=== PATIENT | female | born 1945 | race Caucasian/White ===

== ENCOUNTER → 2018-10-19 | Outpatient (CLI) | payer OTHER ==
[~2018-10-19] VITALS: Ht 157.5 cm; Wt 89.8 kg
[~2018-10-19] MED LIST: ALIGN4 MG PO; ASPIR 8181 MG PO; ATENOLOL 100MG100 MG PO; CALCITRATE200 MG PO; CLONIDINE HCL0.1 MG PO; FIBERCON625 M1 PO; GLUCOSAMINE CH1 EAC2 PO; PROTONIX40 M1 PO; VITAMIN D-32000 UNIT PO; XANAX 0.25 MG0.25 MG PO
--- NOTE | ~2018-10-19 | P ---
[facility] [place] [address] PROCEDURE REPORT Name: THEE BRISENO Room #: REG [facility]#: [id number] Admission: 10/19/18 ������������������ Attend Phys: Maroi Alfred MD Discharge: ������������������ Date of : 41 Report #: [id number] THIS REPORT FOR: //name// CC: Mario Talamantes DATE OF SERVICE: 10/19/2018 BRIEF HISTORY: The patient is a 73-year-old woman with history of a persistent duodenal adenoma with previous removal. She presents today for followup to ensure complete removal. PREOPERATIVE DIAGNOSIS: Duodenal adenoma. POSTOPERATIVE DIAGNOSES: 1. Persistent duodenal adenoma, second portion of duodenum. 2. Moderately severe diffuse gastritis. MEDICATIONS: Deep sedation with propofol per anesthesia. SPECIMEN: Polyp from second portion of duodenum. ESTIMATED BLOOD LOSS: 3 mL. PROCEDURE: Esophagogastroduodenoscopy with snare polypectomy and argon plasma coagulation of polypectomy site. FINDINGS: Prior to propofol sedation, procedure of upper endoscopy and polyp removal was discussed with the patient as well as potential risks and its complications. She indicates she understands and desires to proceed. DESCRIPTION OF PROCEDURE: With the patient in left lateral decubitus position, the Olympus video endoscope was inserted in the cervical esophagus under direct vision without difficulty. Examination of this organ through its entire length revealed normal esophageal mucosa down the squamocolumnar junction. Squamocolumnar junction was inspected and noted to be unremarkable. Scope was advanced in the stomach, was examined on end view as well as retroflexed views. There was noted to be moderate severe diffuse gastritis, this has been noted in the past. Biopsies in the past were negative for Helicobacter pylori and they were not repeated today. Pylorus was unremarkable. Duodenal bulb was unremarkable. The scope was then passed through the duodenal sweep down to the fourth portion. Upon slow withdrawal of the scope through the duodenum, the mucosa was normal all the way back to the level of the papilla. The papilla was seen and was noted to be within normal limits. The previously noted polyp was at the angle of the bulb and second portion, which was a very difficult area to [facility] [address] [place] [address] PROCEDURE REPORT Name: THEE BRISENO Greta Room #: REG [facility]..#: [id number] Admission: 10/19/18 ������������������ Attend Phys: Mario Alfred MD Discharge: ������������������ Date of : 41 Report #: [id number] visualize. We had withdrawal of the scope multiple times in this area and finally did see there was still polypoid tissue remaining. There appeared to be 2 polyps side by side, one was relatively flat and about 5 mm in greatest dimension, the other was smaller, possibly 3 mm or so. It was extremely difficult to maintain position the scope in this area due to its position. We tried multiple times with the upper endoscope to engage it in the snare. However, every time we attempt to do so, the scope fell back into the stomach. After multiple attempts, we then switched for a pediatric colonoscope, which actually gave us a different view. It was still extremely difficult, then after many attempts, we finally engaged the larger polyp in a polypectomy and snare and removed by hot snare polypectomy. We then used biopsy forceps to grasp the smaller polyp and removed most of it. We then treated the area with argon plasma coagulation with good success. The scope was withdrawn. The patient tolerated the procedure well. CONDITION OF THE PATIENT UPON DISCHARGE: Following procedure, the patient was drowsy. She will be discharged home when fully ambulatory. INSTRUCTIONS TO THE PATIENT AND FAMILY AT THE TIME OF DISCHARGE: The patient with duodenal adenoma as noted above, difficult polypectomy as described. We will follow up on the pathology. However, at this point in time, I would suggest return in 6 months for repeat endoscopy to ensure complete treatment of this polyp. She also takes pantoprazole 40 mg twice daily for reflux disease. She reports that her reflux disease is well controlled. I advised her to return to try to reduce to 1 daily and it does well at that level, she may try to reduce further on an as needed basis, but she should take the lowest dose needed to control her symptoms. ��������������������������������������������� ���������������������������������������� By: ��������������������������������������������� [id number] Mario Alfred MD /[place]
--- NOTE | 2018-10-20 17:06 | PATH ---
[facility] [address] [place] [address] PATHOLOGY RPT PROCEDURE Name: THEE CLAY Room #: REG [facility]..#: [id number] ������������������ Admission: 10/19/18 ������������������ Date of : 41 Discharge: Report #: [id number] Path Case #: [id number] [facility] Accession Number: [id number] . 01 Material submitted: . duodenum - POLYP AT DUODENUM . 01 Clinical history: . Pre-OP DX: Adenomatous polyps Post-OP DX: Duodenal polyp, gastritis . 02 Diagnosis: Polyp, duodenum, endoscopic biopsy: - Tubular adenoma present in multiple fragments sampled. - Focal fundic-type metaplasia identified within the background along with mild chronic inflammation. - Negative for high grade dysplasia or malignancy. LBQ/10/20/2018 . 02 Comment: Scattered rare areas of cautery are identified associated with the adenomatous changes. Correlate with the intraoperative/endoscopic findings for a complete resection of the polyp. (IUV/db; 10/20/2018) . 02 Electronically signed: . Laxmi Rock MD, Pathologist NPI- [id number] . 01 Gross description: . Received in formalin labeled "Thee Clay, polyp at duodenum," is a 0.6 x 0.5 x 0.5 cm polypoid piece of whitt soft tissue. The margin is inked and the tissue is sectioned perpendicular to the margin and submitted in its entirely in cassette A1. Additionally received in the same container is a single segment of whitt soft tissue measuring 0.4 cm. The specimen is submitted entirely in cassette A2. (TSD; 10/19/2018) TOB/TOB . 02 Pathologist provided ICD-10: D13.2, K29.80 . 02 CPT . 604482 Specimen Comment: A courtesy copy of this report has been sent to Specimen Comment: [phone], . Specimen Comment: Report sent to / [place] [address] PATHOLOGY RPT PROCEDURE Name: THEE CLAY Room #: REG [facility].#: [id number] ������������������ Admission: 10/19/18 ������������������ Date of : 41 Discharge: Report #: [id number] Path Case #: [id number] Performed at: 01 [facility] [place] [address], [place] [id number] MD Grant Strickland MD Phone: [phone] Performed at: [address] [id number] MD Laxmi Rock MD Phone: [phone]
== END | disposition home or self-care (01) ==
LOC: GI 07:21
DX: D13.2 Benign neoplasm of duodenum (principal); K29.80 Duodenitis without bleeding; I10 Essential (primary) hypertension; K21.9 Gastro-esophageal reflux disease without esophagitis; F41.9 Anxiety disorder, unspecified; Z85.038 Personal history of other malignant neoplasm of large intestine; Z98.41 Cataract extraction status, right eye; Z98.42 Cataract extraction status, left eye; Z90.49 Acquired absence of other specified parts of digestive tract; Z96.1 Presence of intraocular lens; Z87.891 Personal history of nicotine dependence; Z98.890 Other specified postprocedural states; Z98.51 Tubal ligation status; Z79.899 Other long term (current) drug therapy; Z88.8 Allergy status to other drugs, medicaments and biological substances; Z79.82 Long term (current) use of aspirin
CPT/HCPCS: 62110; 62900